=== PATIENT | female | born 1990 | race Caucasian/White ===

== ENCOUNTER → 2016-12-22 | Outpatient (CLI) | payer OTHER ==
[2016-12-25 11:39] LABS: CHLAMYDIA TRACH RNA*** NOT DETECTED (NOT DETECTED); GC (NEIS GONORRHOEAE)RNA** NOT DETECTED (NOT DETECTED)
== END | disposition home or self-care (01) ==
LOC: C.LABSPEC 17:34
PROVIDERS: ATTEND Physician Assistant
DX: Z12.4 Encounter for screening for malignant neoplasm of cervix (principal); Z53.8 Procedure and treatment not carried out for other reasons

== ENCOUNTER 2018-10-15 06:17 | Inpatient (IN) ==
[2018-10-15] MEDS ORDERED: ePHEDrine sulfate 50 MG/ML AMP ONE (06:54)
[2018-10-15] MEDS ORDERED: fentaNYL citrate 100 MCG/2 ML VIAL ONE (06:54)
[2018-10-15] MEDS ORDERED: BUPIVACAINE 0.25% 30 ML VIAL ONE (06:54)
[2018-10-15] MEDS ORDERED: fentaNYL 2MCG/ML ROPIV 1.25MG/ML 100 ML BAG EPI ONE (06:55)
[2018-10-15] MEDS ORDERED: OXYTOCIN 30 UNITS/500 ML BAG IV PRN ×2 (06:55→16:12)
[2018-10-15] MEDS ORDERED: LACTATED RINGER'S 1,000 ML IV PRN ×2 (06:55→08:05)
[2018-10-15 07:31] LABS: Hematocrit (blood only) 39.5 % (37-47); Hemoglobin 13.3 g/dL (12.0-16.0); Mean Corpuscular Volume 88.8 fL (80-100); Mean Platelet Volume 11.9 fL (7.4-10.4); Platelet Count 207 K/uL (130-400); RDW Coefficient of Variation 13.8 % (11.5-14.5); RDW Standard Deviation 44.9 fL (36.4-46.3); Red Blood Count 4.45 M/uL (4.2-5.4); White Blood Count 13.35 K/uL (4.8-10.8)
--- NOTE | 2018-10-15 07:39 | Anesthesiology Consultation ---
Date of Service October 15, 2018 Assessment & Plan Chart Review Chart Review: Acceptable Risk for Surgery, Patient NOT seen in Pre Admission Testing and Acceptable Risk for Labor Epidural Consults Requested none ASA ASA2 Proposed Anesthesia Anesthesia Type: Labor Epidural Risk / Benefits Reviewed With: PT / POA / Parent / Guardian, Accepts Plan and Informed Consent Obtained NPO Date Last Intake of Fluids: 10/14/18 Time Last Intake of Fluids: 18:00 Date Last Intake of Solids: 10/14/18 Time Last Intake of Solids: 18:00 History Height/Weight Height: 5 ft 9 in Weight: 88.451 kg Allergies Allergy/AdvReac Type Severity Reaction Status Date / Time Sulfa (Sulfonamide Allergy Unknown HIVES Verified 06/30/13 09:38 Antibiotics) Medications Home Medications Medication Instructions Recorded Confirmed Last Taken vit-iron fum-folic ac 1 tab PO DAILY 10/15/18 10/15/18 10/14/18 [ Vitamin] valacyclovir 500 mg PO BID 10/15/18 10/15/18 10/14/18 Active Medications Generic Name Dose Route Start Last Admin Trade Name Freq PRN Reason Stop Dose Admin Lactated Ringer's 1,000 mls @ 999 mls/hr 10/15/18 06:55 10/15/18 07:00 Lr IV 11/14/18 06:54 999 mls/hr .Q1H1M PRN Administration (Pre-Anesthesia) Past Medical History Medical History Tonsillectomy planned [place] teeth extracted Past Surgical History Surgical History Hx of hernia repair Past Anesthesia History No Hx of Anesthesia Complications and No Family Hx of Anesthesia Complications History of PONV No Motion Sickness Screening History of Motion Sickness: No Social History Smoking Status: Never smoker Do You Dip or Chew Tobacco: No Hx Alcohol Use: No Hx Substance Use: No Exercise / Class Metabolic Activity II 4-5 Yardwork/Stairs/Walk up hill Physical Exam Vital Signs Last Vital Signs Temp 36.6 C 10/15/18 06:25 Pulse 70 10/15/18 07:34 Resp 18 10/15/18 06:25 BP 186/106 H 10/15/18 07:16 Pulse Ox 100 10/15/18 07:34 ENMT Mouth: no dentition abnormality Thyromental Distance: > or= 3.5 Finger Breadths Mallampati Class: II Neck normal visual inspection and trachea midline; neck extension not limited Respiratory normal respiratory effort Auscultation: lungs clear to auscultation bilaterally Cardiovascular Rate/Rhythm: regular rate and regular rhythm Heart Sounds: no murmur Musculoskeletal Spine: lumbar spine normal to inspection; normal cervical ROM Neurologic moves all extremities Motor/Sensory: no sensory deficit Psychiatric Orientation: alert and oriented x 3 Testing Laboratory Results 10/15/18 07:18
[2018-10-15 08:05] LABS: Mean Corpuscular Hgb Conc 33.7 g/dL (32-36)
[2018-10-15] MEDS ORDERED: NALBUPHINE HCL INJ 10 MG/ML AMP IV PRN (08:05)
[2018-10-15] MEDS ORDERED: ePHEDrine sulfate 50 MG/ML AMP IV PRN (08:05)
[2018-10-15] MEDS ORDERED: PROMETHAZINE HCL 25 MG in SODIUM CHLORIDE 0.9% 50 ML IV PRN (08:05)
[2018-10-15] MEDS ORDERED: NALOXONE HCL 0.4 MG/1 ML VIAL/CARP IV PRN (08:05)
[2018-10-15] MEDS ORDERED: fentaNYL 2MCG/ML ROPIV 1.25MG/ML 100 ML BAG EPI PRN (08:05)
[2018-10-15] MEDS ORDERED: DiphenhydrAMINE HCL 50 MG/ML VIAL IV PRN (08:05)
[2018-10-15] MEDS ORDERED: ONDANSETRON INJ 2 MG/ML 2 ML VIAL IV PRN (08:05)
[2018-10-15] MEDS ORDERED: NALOXONE HCL 1 MG in SODIUM CHLORIDE 0.9% 1000ML 1,000 ML IV PRN (08:05)
[2018-10-15] MEDS: LACTATED RINGER'S 1,000 ML IV SCH ×2 (08:33→18:42)
[2018-10-15 08:36] LABS: Albumin Level 2.5 gm/dl (3.4-5.0); BUN Creatinine Ratio 10.7 (10-20); Calcium 8.5 mg/dl (8.5-10.1); Creatinine Clr Calc Pharmacy 104.7 ml/min; Potassium 3.8 mmol/L (3.5-5.1)
[2018-10-15 08:39] LABS: Albumin Globulin Ratio 0.7 (0.9-2); Bilirubin,Total 0.2 mg/dl (0.2-1); Globulin 3.7 gm/dl (2.5-4.0); Total Protein 6.2 gm/dl (6.4-8.2)
--- NOTE | 2018-10-15 09:58 | History and Physical Report ---
DATE OF ADMISSION: 10/15/2018 HISTORY OF PRESENT ILLNESS: This is a 28-year-old G1, P0, due date 10/13/2018 making her 40 weeks and 2 days who presented to labor and delivery in labor. On arrival to labor and delivery, she had no shortness of breath, no chills, no fever. She was examined by a nurse and found to be 6 cm with bulging membranes. Decision was therefore made to admit the patient. heart rate on admission was category 1. The patient was mellissa every 2-3 minutes. COURSE: Has been unremarkable. LABS: Blood type O positive, antibody negative, rubella immune, GBS negative. PAST MEDICAL HISTORY: History of PCOS, history of inguinal hernia repair as well as dental surgery and tonsillectomy. SOCIAL HISTORY: The patient denies tobacco, drug or alcohol use. FAMILY HISTORY: Noncontributory. PHYSICAL EXAMINATION: GENERAL: Well-developed, well-nourished white female in labor discomfort. HEART: S1, S2, regular rhythm and rate. LUNGS: Clear to auscultation bilaterally. PELVIC: Pelvic exam by nurse, the patient is 6 cm with bulging membranes. Perineum inspection showed no active lesions. The patient has history of herpes and is on suppressive therapy since 36 weeks. EXTREMITIES: No cyanosis, clubbing or edema. ASSESSMENT AND PLAN: A 28-year-old G1, P0 at 40 and 2, in labor. The patient is being admitted and we anticipate vaginal delivery.
--- NOTE | 2018-10-15 09:59 | Obstetrical Progress Note ---
Date of Service October 15, 2018 Physical Exam Vital Signs (Past 24 Hours): Last Vital Signs Temp 36.6 C 10/15/18 06:25 Pulse 82 10/15/18 09:54 Resp 18 10/15/18 09:03 BP 159/82 H 10/15/18 09:48 Pulse Ox 100 10/15/18 09:54 Constitutional: WD/WN, vitals as above comfortable Genitourinary: Manual OB Exam: + cervical dilation 9 cm, + cervical effacement 100%, + station -1 and + amniotic fluid meconium OB Exam Monitor Tracing: + external FHT monitor used, + external uterine monitor used, + category I and + normal FHT variability AROM with light meconium noted
--- NOTE | 2018-10-15 13:04 | Obstetrical Progress Note ---
Date of Service October 15, 2018 Physical Exam Vital Signs (Past 24 Hours): Last Vital Signs Temp 37.2 C 10/15/18 11:58 Pulse 75 10/15/18 13:01 Resp 18 10/15/18 10:33 BP 133/75 10/15/18 12:48 Pulse Ox 86 L 10/15/18 13:01 Genitourinary: Manual OB Exam: + cervical dilation 10 cm, + cervical effacement 100%, + station 0 and + amniotic fluid OB Exam Monitor Tracing: + external FHT monitor used, + category I and + normal FHT variability will labor down until she is feeling pressure
[2018-10-15] MEDS ORDERED: DIPHTHERIA/TETANUS/PERTUSSIS 0.5 ML SYR/VIAL IM ONE (16:12)
[2018-10-15] MEDS ORDERED: IBUPROFEN 600 MG TAB PO PRN (16:12)
[2018-10-15] MEDS ORDERED: SUPERCREAM 0.870% 15 GM JAR EXT PRN (16:12)
[2018-10-15] MEDS ORDERED: HYDROCORTISONE ACETATE 25 MG SUPP PR PRN (16:12)
[2018-10-15] MEDS ORDERED: ACETAMINOPHEN 325 MG TAB PO PRN (16:12)
[2018-10-15] MEDS ORDERED: BENZOCAINE 20% AER SPR 82.5 GM CAN EXT PRN (16:12)
--- NOTE | 2018-10-15 16:16 | Procedure Note ---
Vaginal Delivery Summary Date of Service October 15, 2018 Supervising Physician Co-Signing Physician Notes Delivery note live female over intact perineum AILYN with tight nuchal cord x1 reduced at delivery with Apgars 6/8 and weight pending. Cord immediately cut and baby transferred to bed for suctioning and warming. Cord obtained for pH and cord blood obtained. Placenta delivered spontaneously and intact. No tears. EBL 200 ml. Mom stable and baby to nursery for observation.
[2018-10-15 16:32] LABS: Base Excess Cord Arterial Bld -4.2 mEq/L (-9-1.8); CO2 Cord Arterial Blood 46 mmHg (39.1-73.5); HCO3 Cord Arterial Blood 22 mmol/L (19.7-28.5)
[2018-10-15 16:38] LABS: Cord Venous Blood HCO3 22 mmol/L (18.4-26.8); Cord Venous Blood PCO2 45 mmHg (30.4-57.2); Cord Venous Blood PO2 22 mmHg (14.1-43.3); Cord Venous Blood pH 7.31 (7.20-7.44)
[2018-10-15 16:41] LABS: O2 Saturation Cord Venous Bld < 60.0 % (<68)
--- NOTE | 2018-10-15 17:15 | Anesthesia Procedure Note ---
Date of Service October 15, 2018 Anesthesia Post Epidural Note Vital Signs Vital Signs: Temp Pulse Resp BP Pulse Ox 36.6 C 78 18 146/79 H 77 L 10/15/18 14:58 10/15/18 17:03 10/15/18 10:33 10/15/18 17:03 10/15/18 16:09 Notes Mental Status: alert / awake / arousable Nausea / Vomiting: adequately controlled Pain: adequately controlled Airway Patency, RR, SpO2: stable & adequate BP & HR: stable & adequate Hydration State: stable & adequate Neuraxial Anesthesia: was administered Anesthetic Complications: no major complications apparent Epidural: Removed without complications and With tip intact
[2018-10-15] MEDS: DOCUSATE SODIUM 100 MG CAP PO SCH (20:31)
[2018-10-16 06:34] LABS: Hematocrit (blood only) 35.6 % (37-47); Hemoglobin 11.9 g/dL (12.0-16.0); Mean Corpuscular Hgb Conc 33.4 g/dL (32-36); Mean Corpuscular Volume 88.6 fL (80-100); Mean Platelet Volume 11.9 fL (7.4-10.4); Platelet Count 194 K/uL (130-400); RDW Standard Deviation 45.4 fL (36.4-46.3); Red Blood Count 4.02 M/uL (4.2-5.4); White Blood Count 14.24 K/uL (4.8-10.8)
[2018-10-16] MEDS ORDERED: NON-FORMULARY MEDICATION (Prenatal Vit-Iron Fum-Folic Ac [Prenatal Vitamin] 1 TAB) PO SCH (09:00)
[2018-10-16] MEDS: DOCUSATE SODIUM 100 MG CAP PO SCH ×2 (09:28→20:01)
[2018-10-16] MEDS: PRENATAL VITAMIN 1 TAB PO SCH (09:29)
--- NOTE | 2018-10-16 10:52 | Obstetrical Progress Note ---
Date of Service October 16, 2018 Subjective doing well out of bed tolerating diet Physical Exam Vital Signs (Past 24 Hours): Last Vital Signs Temp 36.7 C 10/16/18 05:00 Pulse 68 10/16/18 05:00 Resp 18 10/16/18 05:00 BP 140/91 10/16/18 05:00 Pulse Ox 97 10/16/18 05:00 Gastrointestinal (Abdomen): Abdomen soft fundus firm no edema neg Delaney's tent d/c in AM Results & Data Laboratory Results 10/15/18 10/15/18 10/15/18 07:18 08:08 15:59 WBC 13.35 H RBC 4.45 Hgb 13.3 Hct 39.5 MCV 88.8 MCH 29.9 MCHC 33.7 RDW Std Deviation 44.9 RDW Coeff of Angie 13.8 Plt Count 207 MPV 11.9 H Cord ABG pH 7.30 Cord ABG pCO2 46 Cord ABG pO2 22.0 Cord ABG HCO3 22 Cord ABG Base Excess -4.2 Cord ABG O2 Sat < 60.0 Cord VBG pH Cord VBG pCO2 Cord VBG pO2 Cord VBG HCO3 Cord VBG Base Excess Cord VBG O2 Sat Barometric Pressure 736.0 Blood Gas Comments OLIVA Sodium 138 Potassium 3.8 Chloride 106 Carbon Dioxide 22 Anion Gap 9.0 BUN 10 Creatinine 0.94 Est Cr Clr Drug Dosing 104.7 Est GFR ( Amer) 95.0 Est GFR (Non-Af Amer) 82.0 BUN/Creatinine Ratio 10.7 Glucose 89 Calcium 8.5 Total Bilirubin 0.2 AST 20 ALT 17 Alkaline Phosphatase 178 H Total Protein 6.2 L Albumin 2.5 L Globulin 3.7 Albumin/Globulin Ratio 0.7 L 10/15/18 10/16/18 15:59 06:00 WBC 14.24 H RBC 4.02 L Hgb 11.9 L Hct 35.6 L MCV 88.6 MCH 29.6 MCHC 33.4 RDW Std Deviation 45.4 RDW Coeff of Angie 14.0 Plt Count 194 MPV 11.9 H Cord ABG pH Cord ABG pCO2 Cord ABG pO2 Cord ABG HCO3 Cord ABG Base Excess Cord ABG O2 Sat Cord VBG pH 7.31 Cord VBG pCO2 45 Cord VBG pO2 22 Cord VBG HCO3 22 Cord VBG Base Excess -4.0 Cord VBG O2 Sat < 60.0 Barometric Pressure 736.1 Blood Gas Comments OLIVA Sodium Potassium Chloride Carbon Dioxide Anion Gap BUN Creatinine Est Cr Clr Drug Dosing Est GFR ( Amer) Est GFR (Non-Af Amer) BUN/Creatinine Ratio Glucose Calcium Total Bilirubin AST ALT Alkaline Phosphatase Total Protein Albumin Globulin Albumin/Globulin Ratio
[2018-10-16] MEDS ORDERED: BISACODYL 5 MG TABEC PO SCH (20:00)
[2018-10-17] MEDS ORDERED: BISACODYL 10 MG SUPP PR PRN (06:00)
[2018-10-17 06:51] LABS: Hematocrit (blood only) 37.8 % (37-47); Hemoglobin 12.6 g/dL (12.0-16.0)
[2018-10-17] MEDS: PRENATAL VITAMIN 1 TAB PO SCH (07:53)
[2018-10-17] MEDS: DOCUSATE SODIUM 100 MG CAP PO SCH (07:53)
--- NOTE | 2018-10-17 08:30 | Obstetrical Progress Note ---
Date of Service October 17, 2018 Assessment & Plan (1) normal course: PPD #2 pt doing well wishes to be discharged home Subjective Ambulation: ambulating normally Voiding: no voiding problems Passing Gas:: Yes Diet Tolerance:: regular diet Lochia:: Small Feeding Type:: breast feeding Review of Systems All systems reviewed & are unremarkable except as noted in HPI & below Physical Exam Vital Signs (Past 24 Hours) Last Vital Signs Temp 36.6 C 10/17/18 00:20 Pulse 60 10/17/18 00:20 Resp 18 10/17/18 00:20 BP 133/82 10/17/18 00:20 Pulse Ox 100 10/16/18 20:00 Constitutional WD/WN, vitals as above well developed and well nourished Eyes PERRL, conjunctivae normal, anicteric sclerae Neck trachea midline, no thyromegaly Respiratory normal respiratory effort, lungs clear to auscultation Auscultation: no crackles, no rales and no wheezes Cardiovascular RRR, no murmur, no edema Gastrointestinal (Abdomen) normal bowel sounds, soft, nontender, no hepatosplenomegaly Uterus is below umbilicus Musculoskeletal no cyanosis or clubbing, extremities motor strength 5/5 Skin no rashes, warm and dry Neurologic patellar DTR's 2+ bilat, sensation intact Psychiatric A+Ox3, euthymic affect Genitourinary normal external appearance
== END 2018-10-17 14:00 | disposition home or self-care (01) | DRG 807 ==
LOC: OPB 06:17 → 4S1 06:20 → 4S2 19:18

== ENCOUNTER 2019-12-30 01:50 | Inpatient (IN) ==
--- OUTSIDE RECORDS SUMMARY | 2019-12-30 01:54 | External Medical Summary | Continuity of Care Document ---
:1990 Author Name Sukhdeep Moses Address Unavailable Unavailable , Care Team Providers Name Role Phone Kurt Rios M.D. Unavailable [email or web address] [email or web address], NO Unavailable Unavailable Unavailable Unavailable Unavailable Assessments Assessed Problems:Spontaneous Problems Herpes simplex (054.9) (B00.9) Spontaneous (634.90) (O03.9) Encounter for routine gynecological examination (V72.31) (Z0 1.419) Allergies and Adverse Reactions Sulfa Drugs (Allergy) Medications valACYclovir HCl - 500 MG Oral Tablet; T MEG ONE TABLET BY MOUTH TWICE DAILY FOR 3 DAYS PAMELA Cortés Start: 23-Aug-2013 Quantity: 6 Refills: 3 Procedures History of Tonsillectomy Status: Complet ed Immunizations Immunizations not documented Family History Mother Family history of Malignant Melanoma Of The Skin (V16.8) Sta tus: Active Social History - Smoking Status Never smoked tobacco Plan of Treatment Planned Observations Planned Goals not documented Results No Known Results Results not documented Encounters Appointment; Poonam Rios M.D. 22-Sep-2017 14:10 Encounter Diagnosis: Problem not documented
[2019-12-30] MEDS ORDERED: OXYTOCIN 30 UNITS/500 ML BAG IV PRN ×2 (02:20→05:00)
--- NOTE | 2019-12-30 02:25 | History & Physical Report ---
Date of Service December 30, 2019 Assessment & Plan (1) Uterine contractions at greater than 20 weeks of gestation: Patient is a 29 yo at 39.2 wks with ctxs, in active labor FHR reassuring GBS negative Desires epidural for pain Admit, labs, IVF, anticipate History of Present Illness Chief Complaint: Contractions Primary Care Provider: NO PCP Patient is a 29 yo at 39.2 wks who started to feel ctxs around 2330 pm got closer and more regular No LOF/VB +FM Her has been uncomplicated she had remote h/o HSV, 5 years ago, on Valtrex No symptoms no lesions Allergies Allergy/AdvReac Type Severity Reaction Status Date / Time Sulfa (Sulfonamide Allergy Unknown HIVES Verified 06/30/13 09:38 Antibiotics) Home Medications Home Medications Medication Instructions Recorded Confirmed Type Vitamin 1 tab PO DAILY 10/15/18 10/15/18 History valacyclovir 500 mg PO BID 10/15/18 10/15/18 History ibuprofen 600 mg PO Q4H #30 tab 10/17/18 Rx Patient History Medical History Tonsillectomy planned Surgical History Hx of hernia repair [place] teeth extracted Family History Grandfather (Maternal) Diabetes Hypertension Father Hypertension Brother Hypertension Grandfather (Paternal) Hypertension Father Hyperlipidemia Mother Thyroid disease Sister Thyroid disease Social History Preferred Language: Cymraes Communication Ability: Effective Instructor Modeling Required: No Beliefs That Will Affect Care: None marital status: Current Living Situation: Spouse Feels Safe at Home: Yes Smoking Status: Never smoker Second Hand Exposure: No ; Hx Alcohol Use: No Hx Substance Use: No OB History FT in 2019 Review of Systems All systems reviewed & are unremarkable except as noted in HPI & below Physical Exam Constitutional: WD/WN, vitals as above well developed, well nourished and + acute distress (mild distress) Genitourinary: no vaginal lesions, no adnexal mass normal external appearance and normal appearance of the urethra Speculum/Bimanual Exam: normal appearance of the vagina OB Exam Abdomen: + vertex and + regular contractions Manual OB Exam: + cervical dilation 9 cm, + cervical effacement 90% and + station (with bulging bag) 0 OB Exam Monitor Tracing: + category I Results & Data Vital Signs (Past 12 Hours) Vital Signs Pulse BP 12/30/19 02:09 58 L 142/93 H
[2019-12-30] MEDS: LACTATED RINGER'S 1,000 ML IV PRN ×2 (02:30→03:50)
[2019-12-30 02:44] LABS: Hematocrit (blood only) 40.2 % (37-47); Hemoglobin 13.3 g/dL (12.0-16.0); Mean Corpuscular Hemoglobin 28.2 pg (25-34); Mean Corpuscular Volume 85.4 fL (80-100); Mean Platelet Volume 11.6 fL (7.4-10.4); Platelet Count 172 K/uL (130-400); RDW Coefficient of Variation 13.3 % (11.5-14.5); RDW Standard Deviation 41.2 fL (36.4-46.3); Red Blood Count 4.71 M/uL (4.2-5.4); White Blood Count 8.16 K/uL (4.8-10.8)
[2019-12-30] MEDS ORDERED: ePHEDrine sulfate 50 MG/ML AMP ONE (02:50)
[2019-12-30 02:51] LABS: Mean Corpuscular Hgb Conc 33.1 g/dL (32-36)
[2019-12-30] MEDS ORDERED: fentaNYL citrate 100 MCG/2 ML VIAL ONE (02:51)
[2019-12-30] MEDS ORDERED: BUPIVACAINE 0.25% 30 ML VIAL ONE (02:51)
--- NOTE | 2019-12-30 02:55 | Anesthesiology Consultation ---
Date of Service December 30, 2019 Assessment & Plan Chart Review Chart Review: Acceptable Risk for Surgery, Patient NOT seen in Pre Admission Testing and Acceptable Risk for Labor Epidural Consults Requested none ASA ASA2 Proposed Anesthesia Anesthesia Type: Labor Epidural and Spinal History Height/Weight Height: 5 ft 8 in Weight: 88.451 kg Allergies Allergy/AdvReac Type Severity Reaction Status Date / Time Sulfa (Sulfonamide Allergy Unknown HIVES Verified 06/30/13 09:38 Antibiotics) Medications Home Medications Medication Instructions Recorded Confirmed Last Taken Vitamin 1 tab PO DAILY 10/15/18 12/30/19 12/29/19 08:00 valacyclovir 500 mg PO BID 10/15/18 12/30/19 12/29/19 20:00 Active Medications Generic Name Dose Route Start Last Admin Trade Name Freq PRN Reason Stop Dose Admin Lactated Ringer's 1,000 mls @ 125 mls/hr 12/30/19 02:20 12/30/19 02:30 Lr IV 01/01/20 02:19 999 mls/hr .Q8H PRN Administration L&D Protocol Protocol Past Medical History Medical History Tonsillectomy planned Exercise / Class Metabolic Activity II 4-5 Yardwork/Stairs/Walk up hill Past Family History Family History Grandfather (Maternal) Diabetes Hypertension Father Hypertension Brother Hypertension Grandfather (Paternal) Hypertension Father Hyperlipidemia Mother Thyroid disease Sister Thyroid disease Past Surgical History Surgical History Hx of hernia repair [place] teeth extracted Past Anesthesia History No Hx of Anesthesia Complications and No Family Hx of Anesthesia Complications History of PONV No Hx of PONV and No Hx of Motion Sickness Social History Smoking Status: Never smoker Hx Alcohol Use: No Hx Substance Use: No Physical Exam Vital Signs Last Vital Signs Pulse 58 L 12/30/19 02:09 BP 142/93 H 12/30/19 02:09 Testing Laboratory Results 12/30/19 02:33
[2019-12-30] MEDS ORDERED: NALBUPHINE HCL INJ 10 MG/ML AMP IV PRN (03:20)
[2019-12-30] MEDS ORDERED: ePHEDrine sulfate 50 MG/ML AMP IV PRN (03:20)
[2019-12-30] MEDS ORDERED: PROMETHAZINE HCL 25 MG in SODIUM CHLORIDE 0.9% 50 ML IV PRN (03:20)
[2019-12-30] MEDS ORDERED: NALOXONE HCL 0.4 MG/1 ML VIAL/CARP IV PRN (03:20)
[2019-12-30] MEDS ORDERED: DiphenhydrAMINE HCL 50 MG/ML VIAL IV PRN (03:20)
[2019-12-30] MEDS ORDERED: NALOXONE HCL 1 MG in SODIUM CHLORIDE 0.9% 1000ML 1,000 ML IV PRN (03:20)
[2019-12-30] MEDS ORDERED: ONDANSETRON INJ 2 MG/ML 2 ML VIAL IV PRN (03:20)
--- NOTE | 2019-12-30 03:37 | Obstetrical Progress Note ---
Date of Service December 30, 2019 Assessment & Plan Admission and Anticipated Discharge Date Admission Date: December 30, 2019 Subjective Patient is reevaluated She desired AROM She received spinal and is now comfortable VE; 10/ 100%/ 0 station, bulging bag AROM'ed, clear fluid, head at 1+ with ctx, sagital suture transverse FHR 130's Ctxs q 1-3 min Continue to monitor closely Results & Data ([facility]) Vital Signs (Past 12 Hours) Vital Signs Temp Pulse Resp BP Pulse Ox 12/30/19 03:34 61 93 12/30/19 03:31 67 132/78 12/30/19 03:29 72 95 12/30/19 03:28 70 119/72 92 12/30/19 03:26 68 125/79 12/30/19 03:24 70 100 12/30/19 03:22 71 109/60 12/30/19 03:21 68 106/58 L 12/30/19 03:20 70 92 12/30/19 03:19 69 98 12/30/19 03:17 64 108/58 L 12/30/19 03:14 65 107/56 L 100 12/30/19 03:09 61 100 12/30/19 03:07 71 94 12/30/19 03:04 67 100 12/30/19 03:00 63 156/91 H 12/30/19 02:59 149 H 84 L 12/30/19 02:34 36.8 C 58 L 20 142/93 H 12/30/19 02:09 58 L 142/93 H
[2019-12-30] MEDS ORDERED: DIPHTHERIA/TETANUS/PERTUSSIS 0.5 ML SYR/VIAL IM ONE (05:00)
[2019-12-30] MEDS ORDERED: BENZOCAINE 20% AER SPR 82.5 GM CAN EXT PRN (05:00)
[2019-12-30] MEDS ORDERED: bisacodyL 10 MG SUPP PR PRN (05:00)
[2019-12-30] MEDS ORDERED: IBUPROFEN 600 MG TAB PO PRN (05:00)
[2019-12-30] MEDS ORDERED: MEASLES, MUMPS & RUBELLA VIRUS VIAL SQ ONE (05:00)
[2019-12-30] MEDS ORDERED: ACETAMINOPHEN 325 MG TAB PO PRN (05:00)
[2019-12-30] MEDS ORDERED: HYDROCORTISONE ACETATE 25 MG SUPP PR PRN (05:00)
[2019-12-30] MEDS ORDERED: SUPERCREAM 0.870% 15 GM JAR EXT PRN (05:00)
--- NOTE | 2019-12-30 06:02 | Delivery Summary ---
DATE OF OPERATION: 12/30/2019 TIME OF DELIVERY OF BABY: 4:46 a.m. DETAILS OF DELIVERY: The patient was found to be fully dilated and desired to push. She pushed for about 10 minutes and delivered the head without difficulty. There was a nuchal cord around the neck x1 which was reduced and shoulders were delivered with minimal traction. Baby was handed off to the mother where mouth and nose were suctioned. Cord was clamped x2 and cut at 1-minute delay and cord blood was obtained. The vagina and perineum were checked for lacerations, they were intact, no lacerations were found, and then placenta was found to be in the vagina, delivered spontaneously as intact and complete. Uterus was explored, found to be empty. Lower segment was cleared of all clots and debris. Fundus was firm. EBL was 100 mL. Mom and baby tolerated the procedure well. Sponge, lap, instrument count was correct x2. Baby was a viable male , Apgars 9/9.. No complications happened and I was present during whole procedure. I attest to the content of the Intraoperative Record and any orders documented therein. Any exceptions are noted below. MTDD
[2019-12-30] MEDS: PRENATAL VITAMIN 1 TAB PO SCH (08:39)
[2019-12-30] MEDS: DOCUSATE SODIUM 100 MG CAP PO SCH ×2 (08:39→21:28)
[2019-12-30] MEDS: FERROUS SULFATE 325 MG TAB PO SCH (08:39)
[2019-12-31 06:56] LABS: Hematocrit (blood only) 36.1 % (37-47); Hemoglobin 11.7 g/dL (12.0-16.0); Mean Corpuscular Hemoglobin 28.2 pg (25-34); Mean Corpuscular Hgb Conc 32.4 g/dL (32-36); Mean Platelet Volume 12.2 fL (7.4-10.4); Platelet Count 160 K/uL (130-400); RDW Coefficient of Variation 13.6 % (11.5-14.5); RDW Standard Deviation 42.8 fL (36.4-46.3); Red Blood Count 4.15 M/uL (4.2-5.4); White Blood Count 9.19 K/uL (4.8-10.8)
[2019-12-31] MEDS: PRENATAL VITAMIN 1 TAB PO SCH (08:54)
[2019-12-31] MEDS: DOCUSATE SODIUM 100 MG CAP PO SCH (08:54)
[2019-12-31] MEDS: FERROUS SULFATE 325 MG TAB PO SCH (08:54)
--- NOTE | 2019-12-31 11:41 | Obstetrical Progress Note ---
Date of Service December 31, 2019 Assessment & Plan Admission and Anticipated Discharge Date Admission Date: December 30, 2019 Physical Exam Physical Exam: abdomen soft and non tender no calf tenderness ambulating well vaginal bleeding scant hgb 11.7 Results & Data ([facility]) Vital Signs (Past 12 Hours) Vital Signs Temp Pulse Resp BP 12/31/19 07:28 36.6 C 55 L 16 135/85 12/31/19 04:00 36.6 C 66 18 130/79 12/31/19 00:30 36.3 C L 67 18 136/85
[2019-12-31] MEDS ORDERED: bisacodyL 5 MG TABEC PO SCH (20:00)
== END 2019-12-31 12:20 | disposition home or self-care (01) | DRG 807 ==
LOC: OPB 01:50 → 4S1 01:52 → 4S2 07:35